=== PATIENT | male | born 1995 | race Caucasian/White ===

== ENCOUNTER 2018-01-14 13:38 | Emergency (ER) | payer OTHER ==
[~2018-01-14] VITALS: Ht 170.2 cm; Wt 81.6 kg
[2018-01-14] MEDS ORDERED: IBUP800T19 PO (13:47)
[2018-01-14] MEDS ORDERED: HYDR-971 PO (13:47)
--- NOTE | 2018-01-14 14:03 | RAD ---
EXAM: Left ankle, 3 views. HISTORY: Fall. COMPARISON: None. FINDINGS: 3 views of the left ankle are obtained. There is no fracture, dislocation or subluxation. No osteochondral lesion is seen. The ankle mortise is intact. IMPRESSION: No acute osseous finding. Electronically signed by: Antonella Spangler MD (01/14/2018 1:59 PM) [id number]
--- NOTE | 2018-01-14 14:06 | ED.ADGEN ---
Adult General HPI HPI Patient is a 22 year old male who presents with left ankle injury. Patient is in the [employer]. He was doing physical training earlier this morning when he sustained a twisting type injury to the left ankle. He has been able to weight bear but has had worsening pain and swelling over the course of the day. He did not sustain any additional injuries. Review of Systems Review of Systems Constitutional: Denies fever HENT: Denies complaints Respiratory: Denies Musculoskeletal: Denies back pain Neurologic: Denies All other systems were reviewed and found to be within normal limits, except as documented in this note. Current Medications Current Medications Current Medications Medications (Trade) Dose Ordered Sig/Tung Start Time Stop Time Status Last Admin Dose Admin Ibuprofen (Motrin) 800 mg 1X ONCE 01/14/18 14:15 01/14/18 14:16 Allergies Allergies Allergies Coded Allergies Type Severity Reaction Last Updated Verified No Known Drug Allergies 01/14/18 No Physical Exam Physical Exam Constitutional: Well developed, well nourished, no acute distress, non-toxic appearance HENT: Normocephalic, atraumatic Lungs & Thorax: Bilateral breath clear Extremities: Mild swelling over the lateral aspect of the left ankle. He has tenderness to palpation over the tip of the lateral malleolus. 2+ dorsalis pedis pulses. Capillary refill is brisk. Neurologic: Alert and oriented X 3 Psychologic: Affect normal EKG EKG [] Radiology/Procedures Radiology/Procedures No acute bony findings on xray of left ankle Course & Med Decision Making Course & Med Decision Making Pertinent Labs and Imaging studies reviewed. (See chart for details) Patient is seen immediately on arrival. He has findings of ankle sprain on the left. X-ray was completed and also did not reveal acute findings. The patient is placed in an Sammy wrap and an air cast splint. He is provided ibuprofen and some [place] for severe pain. Opiate precautions are discussed with the patient and all of his questions are answered. Final Impression Final Impression Sprain of Left Ankle Dragon Disclaimer Dragon Disclaimer This electronic medical record was generated, in whole or in part, using a voice recognition dictation system. HUNG KAMINSKI DO Jan 14, 2018 14:06
[2018-01-14] MEDS ORDERED: IBUPROFEN 800 MG TABLET. PO ONE (14:15)
[2018-01-14 14:40] VITALS: BP 116/66
== END 2018-01-14 14:45 | disposition home or self-care (01) ==
LOC: ER 13:38
DX: S93.402A Sprain of unspecified ligament of left ankle, initial encounter (principal); X50.1XXA Overexertion from prolonged static or awkward postures, initial encounter; Y93.89 Activity, other specified; Y99.8 Other external cause status; Y92.89 Other specified places as the place of occurrence of the external cause
CPT/HCPCS: 73610; 99284; L4350

== ENCOUNTER 2018-08-01 17:26 | Emergency (ER) | payer OTHER ==
[~2018-08-01] VITALS: Ht 170.2 cm; Wt 87.5 kg
[~2018-08-01 17:26] MED LIST: HYDR-3165 PO; IBUP800T19 PO
--- NOTE | 2018-08-01 17:35 | ED.ADGEN ---
Past History Past Medical History: No Pertinent History Past Surgical History: No Surgical History Alcohol Use: Rarely Drug Use: None Adult General Chief Complaint Chief Complaint " This Rt. leg started hurting after a drive .. I had a drive about 6 hrs to [place] .. I have family there..... about a week now... I ve laid off my work outs.. 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 Thigh and hip pain after road trip. Pain started after drive last week. Pt. denies back injury. No problem with defecation or urination. No history of fever or chills. No history of specific ill contacts. Recent travel [address] travel before on set of pain. Pain appears to follow the sciatic root on Rt. No cording appreciated. Review of Systems Review of Systems Constitutional: Denies fever or chills [] Eyes: Denies change in visual acuity, redness, or eye pain [] HENT: Denies nasal congestion or sore throat [] Respiratory: Denies cough or shortness of breath [] Cardiovascular: No additional information not addressed in HPI [] GI: Denies abdominal pain, nausea, vomiting, bloody stools or diarrhea [] : Denies dysuria or hematuria [] Musculoskeletal: Denies back pain or joint pain [] Integument: Denies rash or skin lesions [] Neurologic: Denies headache, focal weakness or sensory changes [] Endocrine: Denies polyuria or polydipsia [] All other systems were reviewed and found to be within normal limits, except as documented in this note. Family History Family History Noncontributory Current Medications Current Medications Current Medications Medications (Trade) Dose Ordered Sig/Tung Start Time Stop Time Status Last Admin Dose Admin Ketorolac Tromethamine (Toradol Im) 60 mg 1X ONCE 08/01/18 17:45 08/01/18 17:52 DC 08/01/18 18:00 60 MG Allergies Allergies Allergies Coded Allergies Type Severity Reaction Last Updated Verified No Known Drug Allergies 01/14/18 No Physical Exam Physical Exam Constitutional: Well developed, well nourished, moderate distress, non-toxic appearance. [] HENT: Normocephalic, atraumatic, bilateral external ears normal, oropharynx moist, no oral exudates, nose normal. [] Eyes: PERRLA, EOMI, conjunctiva normal, no discharge. [] Neck: Normal range of motion, no tenderness, supple, no stridor. [] Cardiovascular:Heart rate regular rhythm, no murmur [] Lungs & Thorax: Bilateral breath sounds clear to auscultation [] Abdomen: Bowel sounds normal, soft, no tenderness, no masses, no pulsatile masses. [] No saddle loss appreciated Skin: Warm, dry, no erythema, no rash. [] Back: No tenderness, no CVA tenderness. No [Midline tenderness. Extremities: No tenderness, no cyanosis, no clubbing, ROM intact, no edema. [] Pain is in right hip and posterior thigh. Seems to follow sciatic roots. No cording appreciated. Neurologic: Alert and oriented X 3, normal motor function, normal sensory function, no focal deficits noted. []DTR + 2 patella. Plantar sensation intact. Psychologic: Affect anxious, judgement normal, mood normal. [] Current Patient Data Vital Signs Vital Signs Date Time Temp Pulse Resp B/P (MAP) Pulse Ox O2 Delivery O2 Flow Rate FiO2 08/01/18 18:31 82 20 125/67 (86) 97 Room Air 08/01/18 17:26 97.9 EKG EKG [] Radiology/Procedures Radiology/Procedures US shows no obvious DVT. CT - shows L4-5 paracentral disc protrusion. Course & Med Decision Making Course & Med Decision Making Pertinent Labs and Imaging studies reviewed. (See chart for details). Ice packs as needed. After three days advance to moist heat if no re-injury. Tylenol and Ibuprofen for pain. Vicoprofen and Flexeril for marked pain and spasms. Followup with primary. Return if any concerns. No lifting until review by primary. May need MRI and Neurosurgery eval. [] Final Impression Final Impression 1. Leg Pain[] Rt. - Suspect Sciatica 2. Large Rt. Paracentral disc protrusion at L4-5. Dragon Disclaimer Dragon Disclaimer This electronic medical record was generated, in whole or in part, using a voice recognition dictation system. GROVER VELEZ MD Aug 01, 2018 17:35
[2018-08-01] MEDS ORDERED: KETOROLAC 60 MG/2 ML VIAL. IM ONE (17:45)
[2018-08-01] MEDS ORDERED: HYDR-1179 PO (18:04)
[2018-08-01] MEDS ORDERED: CYCL-331 PO (18:04)
[2018-08-01] MEDS ORDERED: ACET500T68 PO (18:04)
[2018-08-01] MEDS ORDERED: IBUP400T18 PO (18:04)
--- NOTE | 2018-08-01 18:19 | RAD ---
Examination: VENOUS LOWER EXTREMITY RIGHT History: RT LEG PAIN Comparison/Correlation: None Findings: Duplex right lower extremity venous ultrasound exam was performed. Color Doppler, spectral Doppler, and grayscale imaging was performed. Compression and augmentation utilized. Right common femoral, greater saphenous, superficial femoral, popliteal, posterior tibial, and peroneal veins are unremarkable. Right deep femoral vein is partially visualized and unremarkable. Normal compressibility and phasicity. Impression: No evidence of right lower extremity DVT. Electronically signed by: Bjorn Mcgill MD (08/01/2018 6:15 PM) [facility]
[2018-08-01 18:31] VITALS: BP 125/67
--- NOTE | 2018-08-01 18:31 | RAD ---
Examination: CT LUMBAR SPINE WO CONTRAST History: Lower back pain radiating down right leg, recent long car trip Comparison/Correlation: None Findings: Axial images of the lumbar spine were obtained without contrast. Sagittal and coronal reformatted images were provided. At the L4-5 level, disc space narrowing is present. There is a large right paracentral disc protrusion at this level with significant effacement of the thecal sac. There is no effacement of the exiting nerve roots at this level. Mild concentric disc bulge at L3-4 is present. Transitional L5 vertebra is noted with pseudoarticulation of the right transverse process with S1. Vertebral body heights are adequate. No bony destruction. Neural foramina are patent. Partially visualized retroperitoneal soft tissues are unremarkable. Impression: Large right paracentral disc protrusion at L4-5 with significant effacement of the thecal sac. No exiting nerve root effacement. Disc space narrowing at this level also is present. Transitional L5 vertebra. Electronically signed by: Bjorn Mcgill MD (08/01/2018 6:27 PM) [facility]
== END 2018-08-01 18:50 | disposition home or self-care (01) ==
LOC: ER 17:26
DX: M79.651 Pain in right thigh (principal); M25.551 Pain in right hip; M51.26 Other intervertebral disc displacement, lumbar region; X50.9XXA Other and unspecified overexertion or strenuous movements or postures, initial encounter; Y93.89 Activity, other specified; Y99.8 Other external cause status
CPT/HCPCS: 72131; 93971; 96372; 99284; J1885

== ENCOUNTER → 2018-09-15 | Outpatient (CLI) | payer OTHER ==
[~2018-09-15] MED LIST changes: +ACET500T68 PO; +CYCL-331 PO; +HYDR-1179 PO; +IBUP400T18 PO
== END | disposition home or self-care (01) ==
LOC: SURG 12:01
PROVIDERS: ATTEND Anesthesiology Pain Medicine
DX: M54.16 Radiculopathy, lumbar region (principal); M19.90 Unspecified osteoarthritis, unspecified site
CPT/HCPCS: 99203

== ENCOUNTER → 2018-09-29 | Outpatient (CLI) | payer OTHER ==
[~2018-09-29] MED LIST changes: +0.9 % SODIUM CHLORIDE 10 ML VIAL ONE; +IOHEXOL 300 MG/ML 50 ML VIAL. ONE; +LIDOCAINE 1% PF 30 ML VIAL. ONE; +methylPREDNISolone ACETATE 80 MG/ML VIAL. ONE
== END | disposition home or self-care (01) ==
LOC: SURG 12:54
PROVIDERS: ATTEND Anesthesiology Pain Medicine
DX: M54.16 Radiculopathy, lumbar region (principal); M19.90 Unspecified osteoarthritis, unspecified site; Z79.899 Other long term (current) drug therapy; F17.210 Nicotine dependence, cigarettes, uncomplicated; Z72.89 Other problems related to lifestyle; K08.409 Partial loss of teeth, unspecified cause, unspecified class; Z98.890 Other specified postprocedural states
CPT/HCPCS: 62323; J1040; J2001; Q9967

== ENCOUNTER → 2018-11-25 | Outpatient (CLI) | payer OTHER ==
[~2018-11-25] MED LIST changes: +BUPIVACAINE MPF 0.25% 30 ML VIAL. ONE; +DEXAMETHASONE SOD PHOS 10 MG/ML VIAL ONE; -methylPREDNISolone ACETATE 80 MG/ML VIAL. ONE
== END | disposition home or self-care (01) ==
LOC: SURG 08:38
PROVIDERS: ATTEND Anesthesiology Pain Medicine
DX: M51.16 Intervertebral disc disorders with radiculopathy, lumbar region (principal); Z79.899 Other long term (current) drug therapy; F17.210 Nicotine dependence, cigarettes, uncomplicated; Z72.89 Other problems related to lifestyle
CPT/HCPCS: 64483; 64484; J1100; J2001; J3490; Q9967

== ENCOUNTER 2021-07-29 17:43 | Emergency (ER) | payer OTHER ==
[~2021-07-29] VITALS: Ht 172.7 cm; Wt 89.0 kg
[~2021-07-29 17:43] MED LIST changes: -0.9 % SODIUM CHLORIDE 10 ML VIAL ONE; -BUPIVACAINE MPF 0.25% 30 ML VIAL. ONE; -CYCL-331 PO; +CYCL10TA19 PO; -DEXAMETHASONE SOD PHOS 10 MG/ML VIAL ONE; -IOHEXOL 300 MG/ML 50 ML VIAL. ONE; -LIDOCAINE 1% PF 30 ML VIAL. ONE
--- NOTE | 2021-07-29 19:16 | RAD ---
Study: XR CHEST 2V Indication: Congestion. Cough. Comparison: None. Findings: Streaky densities emanating from both ivelisse. No lobar consolidation, pleural effusion or pneumothorax. The cardiomediastinal silhouette is within normal limits for size given AP technique. Impression: Nonspecific streaky densities emanating from both ivelisse but potentially a bronchitis/atypical infectio us process given provided history. No lobar consolidation to indicate an organizing pneumonia. Electronically signed by: BERTIN PADILLA MD (07/29/2021 7:14 PM) [facility]
[2021-07-29 20:15] VITALS: BP 120/70
[2021-07-29] MEDS ORDERED: ACETAMINOPHEN 500 MG TABLET PO ONE (20:30)
--- NOTE | 2021-07-29 20:50 | PHYS DOC ---
Past History Past Medical History: No Pertinent History (OPAL WALKER) Past Surgical History: Other Additional Past Surgical Histo: eye (OPAL WALKER) Alcohol Use: Occasionally Drug Use: None (OPAL WALKER) General Adult EDM: Chief Complaint: COUGH HPI: HPI: Patient is a 26 year old male who presents with headache, body aches, fever, chills and cough. Patient states that he was vaccinated against COVID-19. He denies any sick contacts. He denies sore throat, nasal congestion, shortness of breath, paresthesias or focal weakness. (OPAL WALKER) Review of Systems: Review of Systems: ROS negative or noncontributory except as mentioned in HPI. (OPAL WALKER) Current Medications: Current Meds: Current Medications Medications (Trade) Dose Ordered Sig/Tung Start Time Stop Time Status Last Admin Dose Admin Acetaminophen (Tylenol) 1,000 mg 1X ONCE 07/29/21 20:30 07/29/21 20:34 DC 07/29/21 20:29 1,000 MG (OPAL WALKER) Allergies: Allergies: Allergies Coded Allergies Type Severity Reaction Last Updated Verified No Known Drug Allergies 01/14/18 No (OPAL WALKER) Physical Exam: PE: Constitutional: Well developed, well nourished, no acute distress, patient appears fatigued. HENT: Normocephalic, atraumatic, bilateral external ears without deformity or discharge, oropharynx moist, no oral exudates, nose without deformity or discharge. Eyes: PERRLA, EOMI, conjunctival injection, no discharge. Neck: Normal range of motion, no tenderness, no lymphadenopathy, no stridor. Cardiovascular: Heart rate regular rhythm, no murmur. Lungs & Thorax: Bilateral breath sounds symmetrical without wheezes, rales or rhonchi, slightly diminished throughout. Skin: Warm, dry, no erythema, no rash. (OPAL WALKER) Current Patient Data: Labs: Laboratory Tests Test 07/29/21 20:24 Influenza Type A (Rapid) Negative (NEGATIVE) Influenza Type B (Rapid) Negative (NEGATIVE) SARS-CoV-2 Antigen (Rapid) Positive (NEGATIVE) Vital Signs: Vital Signs Date Time Temp Pulse Resp B/P (MAP) Pulse Ox O2 Delivery O2 Flow Rate FiO2 1/4/22 20:15 102.2 90 18 120/70 (87) 98 Room Air (OPAL WALKER) Radiology/Procedures: Radiology/Procedures: PROCEDURE: CHEST PA & LATERAL Study: XR CHEST 2V Indication: Congestion. Cough. Comparison: None. Findings: Streaky densities emanating from both ivelisse. No lobar consolidation, pleural effusion or pneumothorax. The cardiomediastinal silhouette is within normal limits for size given AP technique. Impression: Nonspecific streaky densities emanating from both ivelisse but potentially a bronchitis/atypical infectious process given provided history. No lobar consolidation to indicate an organizing pneumonia. Electronically signed by: BERTIN PADILLA MD (07/29/2021 7:14 PM) [facility] (OPAL WALKER) Heart Score: C/O Chest Pain: No (OPAL WALKER) Course & Med Decision Making: Course & Med Decision Making Pertinent Labs and Imaging studies reviewed. (See chart for details) Patient is a 26-year-old male otherwise healthy who presents with multiple symptoms concerning for viral syndrome, including COVID-19 infection. Work-up today will include chest x-ray, influenza A&B swab, COVID-19 swab. Patient x-ray consistent bronchitis and rapid COVID-19 swab positive. Patient given isolation instructions and return precautions. Patient understands and agrees to discharge plan. (OPAL WALKER) Dragon Disclaimer: Dragon Disclaimer: This electronic medical record was generated, in whole or in part, using a voice recognition dictation system. (OPAL WALKER) Attending Co-Sign The patient was seen and interviewed as well as examined at the bedside. The chart was reviewed. The case was discussed. Agree with the plan of care. (MIKE STROUD DO) Departure Departure: Impression: Primary Impression: Bronchitis due to COVID-19 virus Disposition: HOME / SELF CARE / HOMELESS Condition: STABLE Referrals: HARI DHILLON PA-C (PCP) Patient Instructions: Acute Bronchitis, [id number] Additional Instructions: Follow the following supportive treatment measures: - Cool mist humidifier with plain water at bedside while you sleep - Mucinex (guaifenesin) per box instructions - Tessalon perles (benzonatate) for cough, especially at night before bed - Alternate ibuprofen and acetaminophen every four hours for body aches/fever/headache If antibiotics were prescribed, take them as directed. You have been tested for or diagnosed with COVID-19 infection. It is an infection caused by a new type of coronavirus. COVID-19 will cause cold-like or mild flu symptoms in most. It can cause more severe symptoms like problems b reathing in some. There is no treatment for COVID-19. The body will clear the infection over time. Self-care will help to ease discomfort. Steps to Take: - Rest as needed. - Choose healthy foods including fruits and vegetables. Drink water throughout the day. - Get plenty of sleep each night. - If you smoke, try to quit. It may ease breathing. - Avoid alcohol. - Keep Others Healthy - The virus can spread to others. Droplets are released every time you sneeze or cough. The droplets can get into the mouth, nose, or eyes of people near you and lead to infection. To lower the chances of spreading COVID-19 to others: Stay at home until your doctor has said it is safe to leave. If you tested positive this will mean staying isolated until both of the following are true: - At least 7 days have passed since the start of illness. - You are free of fever for at least 72 hours without the use of medicine. During this time: - Avoid public areas, events, or transportation. Do not return to work or school until your doctor has said it is safe to do so. - Call ahead if you need to go to a medical center. Let them know you may have COVID-19. It will help them guide you where to go. They may also ask you to wear a facemask when you come to the office. - If you call for emergency medical services, let them know you may have COVID- 19. While at home: - Try to avoid close contact with others. Stay about 6 feet away. - If possible, spend most of your time in a separate room from others. - Use a face mask if you will be in close contact with others such as sharing a room or vehicle. - Have someone wipe down common surfaces in the home. Use household tufting machine operator every day on areas like doorknobs, counters, or sinks. - Cough or sneeze into a tissue. Throw the tissue away right after use. If a tissue is not available, cough or sneeze into your elbow. - Wash your hands often. Wash them after sneezing or coughing. Use soap and water and wash or at least 20 seconds. Alcohol based hand turkey cleaner can be used if soap and water is not available. - Do not prepare food for others. Avoid sharing personal items like forks, spoons, or toothbrushes. - Avoid close contact with pets while you are sick. There is no evidence of the virus passing to pets. This is a safety step until more is known about this virus. - Isolation can be frustrating. Social interaction can help. Keep in touch with friends and family through phone and tech options. You can still interact with others in your home, just keep a safe distance of about 6 feet. Follow-up: - Your doctors office will check in with you to see if there are any changes in your health. - You may be asked to keep track of symptoms to share with them. They will also let you know when you are clear to be in public again. Contact your doctor if your recovery is not going as you expect. Get emergency care if you have problems such as: - Trouble breathing with oxygen saturation <90% - Nonstop chest pain or pressure - Changes in awareness, confusion, or problems waking - Lips or face have bluish color - Worsening of symptoms If you think you have an emergency, call for emergency medical services right away. As taken from [facility] Albuterol Sulfate (PROAIR HFA INHALER) 8.5 Gm Hfa.aer.ad 2 PUFF IH PRN Q4-6HRS PRN for wheezing for 21 Days, #1 INHALER 0 Refills Prov: OPAL WALKER 07/29/21 Benzonatate (BENZONATATE) 100 Mg Capsule 1-2 CAP PO HS for cough, #20 CAP Prov: OPAL WALKER 07/29/21 OPAL WALKER Jul 29, 2021 20:50 MIKE STROUD DO Jul 30, 2021 14:42
[2021-07-29 21:00] LABS: INFLUENZA A PATIENT NEGATIVE (NEGATIVE); INFLUENZA B PATIENT NEGATIVE (NEGATIVE)
[2021-07-29] MEDS ORDERED: BENZ-8 PO (21:08)
[2021-07-29] MEDS ORDERED: ALBU2.5V8 IH (21:08)
[2021-07-29] MEDS ORDERED: ONDANSETRON ODT 4 MG TAB.RAPDIS PO ONE (21:15)
== END 2021-07-29 21:57 | disposition home or self-care (01) ==
LOC: ER 17:43
DX: U07.1 COVID-19 (principal); J40 Bronchitis, not specified as acute or chronic
CPT/HCPCS: 71046; 87426; 87804; 99284